=== PATIENT | male | born 1970 | race Caucasian/White ===

== ENCOUNTER → 2020-08-10 13:27 | Outpatient (CLI) | payer OTHER, SELFPAY ==
[2020-08-11 15:11] LABS: COVID19 Sendout Not Detected (Not Detect)
== END ==
PROVIDERS: PCP Student in an Organized Health Care Education/Training Program; Visit Provider Physician Assistant
DX: Z11.59 Encounter for screening for other viral diseases (principal)
CPT/HCPCS: 87635

== ENCOUNTER 2020-08-13 11:15 | Day surgery (SDC) | payer OTHER, SELFPAY ==
[2020-08-13] VITALS (9 sets, daily range): BP systolic 113–159; BP diastolic 76–93; PULSE 58–93; RESP 12–18; TEMP 36.3–36.7; O2SAT 94–95; BMI 33.6
--- NOTE | 2020-08-13 | PATH_ITS ---
[facility] Accession Number: [id number] . 01 Material submitted: . PART A: colon - TRANSVERSE COLON POLYP PART B: colon - DESCENDING COLON POLYP . 01 Clinical history: . A: POLYP X2 . 02 Diagnosis: A. Transverse Colon Polyp: Portions of tubular adenoma x2. Superficial portion of colorectal mucosa x1 with a bneign lymphoid aggregate. . B. Descending Colon Polyp: Tubular adenoma. [facility] 08/18/2020 1145 Local . 02 Electronically signed: . Oriana Cassidy MD, Pathologist NPI- [id number] . 01 Gross description: . A. Specimen A is received in formalin, labeled transverse colon polyp and consists of three garcia fragments of soft tissue, measuring 0.7 x 0.6 x 0.3 cm in aggregate. The specimen is entirely submitted in cassette A1. B. Specimen B is received in formalin, labeled descending colon polyp and consists of a 0.4 x 0.3 x 0.2 cm garcia fragment of soft tissue, which is entirely submitted in cassette B1. ([id number]) /[facility] 08/14/2020 1734 Local . 02 Pathologist provided ICD-10: K63.5 . 02 CPT . 259553, [id number] Performed at: [address] [facility] [address], [place], [place] [id number] MD Barron Tony MD Phone: [phone] Performed at: 02 [facility] [address] [place], [place] [id number] MD Tracey Walters MD Phone: [phone]
[2020-08-13] MEDS: SODIUM CHLORIDE 0.9% 1,000 ML 200 ML IV (11:48)
[2020-08-13] MEDS: MIDAZOLAM 5 MG/5 ML VIAL IV ×2 (12:25→12:44)
[2020-08-13] MEDS: fentaNYL 250 MCG/5 ML INJ IV (12:25)
--- NOTE | 2020-08-13 12:26 | PM.HP.1 ---
History of Present Illness History of Present Illness Chief complaint: [facility] Patient History Family & Social History Social History: household members spouse Tobacco & Substance use: Smoking Status Former smoker alcohol intake frequency holiday/special occasion Substance Use Type does not use Meds Home Medications and Allergies Home Medications Medication Instructions Recorded Confirmed Type atorvastatin [Lipitor] 20 mg PO HS #30 tab 05/22/16 08/13/20 History omeprazole 20 mg PO QDAY #0 cap 05/22/16 08/13/20 History venlafaxine 37.5 mg PO DAILY #0 05/22/16 08/13/20 History Allergies Allergy/AdvReac Type Severity Reaction Status Date / Time No Known Drug Allergies Allergy Verified 08/13/20 11:35 Review of Systems Review of Systems ROS: Yes All systems reviewed with the patient and are negative except as otherwise documented Exam Vital Signs (past 8 hours): - 08/13/20 11:37 Temperature 97.9 F Pulse Rate 93 H Respiratory Rate 18 Blood Pressure 159/93 H Pulse Oximetry 94 Oxygen Delivery Method Room Air Narrative Exam Narrative: Awake alert and oriented x3, pupils equal round reactive to light, oropharynx clear, heart regular rate and rhythm, lungs clear to auscultation bilaterally, abdomen nontender and nondistended, extremities without edema, no gross neurologic deficits noted Assessment & Plan Assessment & Plan narrative: Colon cancer screening for colonoscopy COVID-19 COVID-19 status: Negative
--- NOTE | 2020-08-13 12:48 | P.OP.ENDO_ITS ---
Operative Date/Time/Diagnoses Date of procedure: 08/13/20 Procedure & Clinicians Study performed: Colonoscopy with forcep and snare polypectomy Moderate conscious sedation was administered by the endoscopy nurse and supervised by the endoscopist. The following parameters were monitored: Oxygen saturation, heart rate, blood pressure, and response to care. 6 mg midazolam and 100 mcg fentanyl given. Same procedure as scheduled: Yes Indications: Colon cancer screening. Family history of colon cancer in a first- degree relative and colon polyps in first-degree relative. This is the patient's 1st colonoscopy. Procedure Notes Procedure in detail: Prior to the procedure, history and physical was performed, and patient medications and allergies were reviewed. Preprocedure nursing history and assessment was reviewed. Patient identification and proposed procedure were verified by the physician and nurse in the procedure room. The physical status of the patient was reassessed after the procedure. After informed consent was obtained including risks, benefits, and alternatives, the scope was passed under direct vision. Throughout the procedure, the patient's blood pressure, pulse, and oxygen saturations were monitored continuously. The colonoscope was introduced through the anus and advanced to the cecum as identified by the appendiceal orifice and ileocecal valve. The patient tolerated the procedure well. Bowel prep was deemed adequate to detect polyps greater than 5 mm. Perianal and digital rectal examinations notable for prolapsed internal hemorrhoids. Grade 2 internal hemorrhoids noted during retroflexion in the rectum. A 2 mm sessile polyp was removed from the transverse colon using a cold biopsy forceps and retrieved. A 7 mm and a 5 mm sessile polyp removed from the transverse colon and descending colon, respectively, and were retrieved. Impression: Internal hemorrhoids 2 mm and 7 mm polyp removed from the transverse colon 5 mm colon removed from the descending colon. Sedation minutes: 19 Complications: other (EBL minimal. No complications) Post-procedure Plan for aftercare: Follow-up pathology results Repeat colonoscopy at a date to be determined based on pathology results Resume previous diet Resume home medications Patient has a contact number available for emergencies. The signs and symptoms of potential delayed complications were discussed with the patient. Return to normal activities tomorrow. Written discharge instructions were provided to the patient. Discharge home with escort
== END 2020-08-13 13:45 | disposition home or self-care (01) ==
PROVIDERS: PCP Student in an Organized Health Care Education/Training Program; Referring Provider Internal Medicine; Visit Provider Internal Medicine
PROC: 0DJD8ZZ Inspection of Lower Intestinal Tract, Via Natural or Artificial Opening Endoscopic (ICD-10-PCS; CPT 45378; principal; 2020-08-13 12:30)
DX: Z12.11 Encounter for screening for malignant neoplasm of colon; D12.4 Benign neoplasm of descending colon; D12.3 Benign neoplasm of transverse colon; K64.1 Second degree hemorrhoids; Z80.0 Family history of malignant neoplasm of digestive organs; Z83.71 Family history of colonic polyps; Z87.891 Personal history of nicotine dependence
CPT/HCPCS: 45385; 45380; J2250; J3010

== ENCOUNTER → 2021-03-02 11:37 | Outpatient (CLI) | payer OTHER, SELFPAY ==
[2021-03-02 13:01] LABS: COVID19 -Nasal RAPID Negative (Negative)
== END ==
PROVIDERS: PCP Student in an Organized Health Care Education/Training Program; Visit Provider Student in an Organized Health Care Education/Training Program
DX: Z01.812 Encounter for preprocedural laboratory examination (principal); Z20.822 Contact with and (suspected) exposure to COVID-19
CPT/HCPCS: 87635

== ENCOUNTER 2021-03-04 09:20 | Day surgery (SDC) | payer OTHER, SELFPAY ==
--- NOTE | 2021-03-04 | PATH_ITS ---
[facility] Accession Number: [id number] . 01 Material submitted: . colon - TRANSVERSE COLON POLYP . 02 Diagnosis: Transverse Colon, Polyp, Biopsy: Benign lymphoid aggregate. Additional levels were examined. [facility] 03/10/2021 1425 Local . 02 Electronically signed: . Tracey Walters MD, Pathologist NPI- [id number] . 01 Gross description: . TRANSVERSE COLON POLYP: Received in formalin is 1 fragment(s) of garcia, soft tissue measuring 0.1 x 0.1 x 0.1 cm submitted entirely in 1 cassette(s) /[facility] 03/05/2021 2000 Local . 02 Pathologist provided ICD-10: K63.5 . 02 CPT . 492514 Performed at: 01 [facility] [address] [facility] [place] [facility] [place], [place], [place] [id number] MD Barron Tony MD Phone: [phone] Performed at: [address] [facility] [address] [place], [place] [id number] MD Tracey Walters MD Phone: [phone]
--- NOTE | 2021-03-04 07:55 | PM.HP.1 ---
History of Present Illness History of Present Illness Date Patient Seen: 03/04/21 Chief complaint: SDC *$63 copay* Narrative: 50-year-old male seen during a telehealth visit on 11/19/2020 with a chief complaint of rectal bleeding. He has a history of colonoscopy July 2020 with note of internal hemorrhoids and adenomatous polyps. He had more regular rectal bleeding with small clots Patient History Family & Social History Social History: household members spouse Tobacco & Substance use: Smoking Status Former smoker alcohol intake frequency holiday/special occasion Substance Use Type does not use Meds Home Medications and Allergies Home Medications Medication Instructions Recorded Confirmed Type atorvastatin [Lipitor] 20 mg PO HS #30 tab 05/22/16 03/04/21 History omeprazole 20 mg PO QDAY #0 cap 05/22/16 03/04/21 History venlafaxine 37.5 mg PO DAILY #0 05/22/16 03/04/21 History Allergies Allergy/AdvReac Type Severity Reaction Status Date / Time No Known Drug Allergies Allergy Verified 03/04/21 09:33 Exam Narrative Exam Narrative: General: Patient is obese, not in apparent distress Cardiovascular: Regular rate and rhythm, no murmurs, rubs, or gallops; no evidence of edema; no palpable abdominal aortic aneurysm Gastrointestinal: Normoactive bowel sounds, soft, nontender, nondistended, no rebound tenderness, no hepatosplenomegaly, no evidence of hernia Assessment & Plan Assessment & Plan narrative: 50-year-old male with a history of rectal bleeding with regular frequency, here for further evaluation by means of colonoscopy Regarding the procedure(s), the risks and potential complications, benefits, and alternatives (including not doing the procedure) were discussed with the patient. The risks include but are not limited to bleeding, splenic injury, infection, perforation which may require surgical intervention, missed lesions, and adverse reactions to sedative medicines. After a question and answer period, the patient agreed to proceed with the procedure(s) and gives informed consent.
[2021-03-04 09:34] VITALS: PULSE 95; RESP 14; TEMP 37.1; O2SAT 96; BMI 31.6
[2021-03-04] MEDS: SODIUM CHLORIDE 0.9% 1,000 ML 70 ML IV (09:44)
--- NOTE | 2021-03-04 10:08 | P.OP.ENDO_ITS ---
Operative Date/Time/Diagnoses Date of procedure: 03/04/21 Procedure Notes Procedure in detail: Surgeon: Shad aPrks MD Procedure: Colonoscopy with polypectomy Preoperative diagnosis: Rectal bleeding Postoperative diagnosis: Transverse polyp status post polypectomy, grade 2 internal hemorrhoids Medications: Conscious sedation using 4 mg IV of Midazolam and 100 mcg IV of Fentanyl Preanesthesia Assessment An H and P was performed/updated and the Px?s ASA class is 2. The procedure was discussed in detail with the patient. The potential risks and complications including infection, bleeding, missed lesions, perforation, need for surgery in case of perforation, prolonged hospital stay, and were explained. A brief question and answer period was allotted and once all questions were answered, informed consent was obtained. The patient was brought back to the procedure room and placed on standard monitoring. The patient?s vital signs were monitored continuously throughout the entire procedure. Prior to starting, a timeout was performed to confirm the patient?s identity, allergies, medications, and procedure. Procedure in detail The patient was placed in left lateral decubitus position and once adequate sedation was obtained a REYMUNDO was performed. The digital rectal examination did not reveal any palpable lesions. The tip of the colonoscope was placed in the anal canal and advanced without difficulty all the way to the cecum which was identified by the appendiceal orifice and the ileocecal valve. Careful examination of all lane of the colon was performed with irrigation of any residual stool. In the transverse colon, a 2 mm sessile polyp was removed by means of cold Jumbo forceps. Resection and retrieval was complete with minimal bleeding Retroflexion was performed in the rectum which revealed grade 2 internal hemorrhoids The patient tolerated the procedure well and will be brought back to the recovery area to be discharged once criteria are met. The prep was judged to be good and adequate to identify polyps less than 5 mm. The withdrawal time was 9 minutes. The total physician intraservice time was 13 minutes. Complications There were no complications and estimated blood loss was minimal. Recommendations: Resume previous diet Continue outPx medications Follow up pathology results Repeat colonoscopy due in 5 years per prior colonoscopy recommendations Call our office ([facility]) if you are interested in undergoing hemorrhoid banding; this will involve 3 sessions spread 2 weeks apart Alternatively, you can use the Anusol HC suppositories again at bedtime for 2 weeks An emergency contact number was given to the patient for any complications related to the procedure
[2021-03-04] MEDS: fentaNYL 250 MCG/5 ML INJ IV (10:14)
[2021-03-04] MEDS: MIDAZOLAM 5 MG/5 ML VIAL IV (10:16)
[2021-03-04 10:32] VITALS: BP 141/81; PULSE 94; RESP 13; TEMP 36.9; O2SAT 96
[2021-03-04 10:37] VITALS: BP 143/93; PULSE 89; RESP 12; O2SAT 96
[2021-03-04 10:42] VITALS: BP 143/95; PULSE 81; RESP 15; TEMP 37; O2SAT 95
[2021-03-04 11:05] VITALS: BP 138/91; PULSE 80; RESP 18; TEMP 36.9; O2SAT 96
--- NOTE | 2021-03-04 11:17 | SUR.PHASEII ---
Paper woek printed when ready, belly soft, no nausea left when ready and left in stable condition.
== END 2021-03-04 11:05 | disposition home or self-care (01) ==
PROVIDERS: PCP Student in an Organized Health Care Education/Training Program; Referring Provider Internal Medicine Gastroenterology; Visit Provider Internal Medicine Gastroenterology
PROC: 0DJD8ZZ Inspection of Lower Intestinal Tract, Via Natural or Artificial Opening Endoscopic (ICD-10-PCS; CPT 45378; principal; 2021-03-04 10:30)
DX: K64.1 Second degree hemorrhoids (principal)
CPT/HCPCS: 45380; J2250; J3010